=== PATIENT | female | born 1985 | race American Indian/Alaskan Native ===

== ENCOUNTER 2020-01-02 07:54 | Emergency (ER) | payer OTHER ==
[2020-01-02] MEDS ORDERED: ACETAMINOPHEN 500 MG TAB PO ONE (08:23)
[2020-01-02] MEDS ORDERED: SODIUM CHLORIDE 0.9% 1000 ML 1,000 ML IV ONE (08:23)
[2020-01-02 08:28] LABS: Bacteria,Urine 3+ /HPF (Negative); Bilirubin,Urine NEG (Negative); Blood,Urine MOD (Negative); Color,Urine Yellow (Yellow); Mucus,Urine FEW /HPF
[2020-01-02 08:29] LABS: WBC,Urine > 182.0 /HPF (0.0-6.0)
--- NOTE | 2020-01-02 09:03 | Emergency Department Report ---
ED Female HPI - General Chief complaint: Urogenital-Female Stated complaint: NIGHT SWEATS/KRISHNA WHEN PEE Time Seen by Provider: 01/02/20 08:20 Source: patient Mode of arrival: Ambulatory Limitations: No Limitations - History of Present Illness Initial comments: 34-year-old -[place] female presents to the emergency room complaining of burning with urination and sweats. Patient states this been going on for a few days. Patient denies any fever admits to chills sweats no nausea no vomiting. Last menstrual period was 12/12/2019 and has her tubes tied. Complaint: dysuria Onset/Timin -: days(s) Consistency: intermittent Worsens with: urination Are you Now?: No Last Menstrual Period: 12/12/19 (Tubal ligation) EDC: 09/17/20 Associated Symptoms: fever/chills (Chills no fever), dysuria, other (Diapho resis) - Related Data Previous Rx's Medication Instructions Recorded Last Taken Type Ibuprofen [Motrin 600 MG tab] 600 mg PO Q8H PRN #30 tablet 03/22/19 Unknown Rx Nitrofurantoin [place]/M-Cryst 100 mg PO Q12HR 10 Days #20 capsule 01/02/20 Unknown Rx [Macrobid CAP] Phenazopyridine [Pyridium] 100 mg PO TID #6 tab 01/02/20 Unknown Rx Allergies Allergy/AdvReac Type Severity Reaction Status Date / Time No Known Allergies Allergy Unverified 03/22/19 05:52 ED Review of Systems ROS: Stated complaint: NIGHT SWEATS/KRISHNA WHEN PEE Other details as noted in HPI Comment: All other systems reviewed and negative ED Past Medical Hx - Past Medical History Additional medical history: Herniated back pain - Surgical History Hx Cholecystectomy: Yes Additional Surgical History: C-sections X 3, Tubal Ligation - Social History Smoking Status: Current Every Day Smoker Substance Use Type: None - Medications Home Medications: Home Medications Medication Instructions Recorded Confirmed Last Taken Type Ibuprofen [Motrin 600 MG tab] 600 mg PO Q8H PRN #30 tablet 03/22/19 Unknown Rx Nitrofurantoin [place]/M-Cryst 100 mg PO Q12HR 10 Days #20 capsule 01/02/20 Unknown Rx [Macrobid CAP] Phenazopyridine [Pyridium] 100 mg PO TID #6 tab 01/02/20 Unknown Rx ED Physical Exam - General Limitations: No Limitations General appearance: alert, in no apparent distress, obese, other (Pale diaphoretic) - Head Head exam: Present: atraumatic, normocephalic - Eye Eye exam: Present: normal appearance - ENT ENT exam: Present: mucous membranes moist - Respiratory Respiratory exam: Present: normal lung sounds bilaterally. Absent: respiratory distress - Cardiovascular Cardiovascular Exam: Present: regular rate, normal rhythm. Absent: systolic murmur, diastolic murmur, rubs, gallop - GI/Abdominal GI/Abdominal exam: Present: soft, normal bowel sounds. Absent: distended, tenderness - Extremities Exam Extremities exam: Present: full ROM. Absent: pedal edema - Back Exam Back exam: Present: normal inspection, full ROM. Absent: tenderness - Neurological Exam Neurological exam: Present: alert, oriented X3, normal gait - Psychiatric Psychiatric exam: Present: normal affect, normal mood - Skin Skin exam: Present: warm, dry, intact, normal color. Absent: rash ED Course Vital Signs 01/02/20 01/02/20 01/02/20 08:06 08:35 08:56 Temperature 97.8 F Pulse Rate 109 H Respiratory 18 18 18 Rate Blood Pressure 150/103 [Right] O2 Sat by Pulse 98 99 Oximetry ED Medical Decision Making - Lab Data Result diagrams: 01/02/20 08:26 01/02/20 08:26 Laboratory Tests 01/02/20 01/02/20 01/02/20 08:11 08:26 08:26 WBC 8.9 RBC 4.75 Hgb 12.9 Hct 39.2 MCV 83 MCH 27 L MCHC 33 RDW 16.0 H Plt Count 399 [place] % (Auto) [employer] Sodium Potassium Chloride Carbon Dioxide Anion Gap BUN Creatinine Estimated GFR BUN/Creatinine Ratio Glucose Calcium Total Bilirubin AST ALT Alkaline Phosphatase Total Protein Albumin Albumin/Globulin Ratio HCG, Quant < 2 Urine Color Yellow Urine Turbidity Turbid Urine pH 6.0 Ur Specific [place] 1.013 Urine Protein 30 mg/dl Urine Glucose (UA) Neg Urine Ketones Tr Urine Blood Mod Urine Nitrite Neg Urine Bilirubin Neg Urine Urobilinogen 4.0 Ur Leukocyte Esterase Mod Urine WBC (Auto) > 182.0 H Urine RBC (Auto) 56.0 Urine Bacteria (Auto) 3+ Urine WBC Clumps 3+ Ur Transition Epith Cell 5 Urine Mucus Few 01/02/20 08:26 WBC RBC Hgb Hct MCV MCH MCHC RDW Plt Count [place] % (Auto) Sodium 140 Potassium 3.6 Chloride 100.0 Carbon Dioxide 26 Anion Gap 18 BUN 11 Creatinine 0.9 Estimated GFR > 60 BUN/Creatinine Ratio 12 Glucose 108 H Calcium 9.4 Total Bilirubin 0.70 AST 24 ALT 30 Alkaline Phosphatase 107 Total Protein 8.7 H Albumin 4.1 Albumin/Globulin Ratio 0.9 HCG, Quant Urine Color Urine Turbidity Urine pH Ur Specific [place] Urine Protein Urine Glucose (UA) Urine Ketones Urine Blood Urine Nitrite Urine Bilirubin Urine Urobilinogen Ur Leukocyte Esterase Urine WBC (Auto) Urine RBC (Auto) Urine Bacteria (Auto) Urine WBC Clumps Ur Transition Epith Cell Urine Mucus - Medical Decision Making 34-year-old -[place] female presents to the emergency room complaining of burning with urination and sweats. Patient states this been going on for a few days. Patient denies any fever admits to chills sweats no nausea no vomiting. Last menstrual period was 12/12/2019 and has her tubes tied. Patient will be treated for urinary tract infection. Patient was given IV fluids which she reports she has felt much better. Labs are ordered. Urinalysis shows she has a urinary tract infection will place her on Macrobid and to follow-up with her primary care provider. Critical care attestation.: If time is entered above; I have spent that time in minutes in the direct care of this critically ill patient, excluding procedure time. ED Disposition Clinical Impression: UTI (urinary tract infection) Disposition: DC-01 TO HOME OR SELFCARE Is pt being admited?: No Does the pt Need Aspirin: No Condition: Stable Instructions: Urinary Tract Infection in Women (ED) Additional Instructions: Complete your antibiotics as prescribed. Please increase your fluid intake by 2 L a day. Follow-up with your primary care provider for reevaluation in 5 to 7 days. Prescriptions: Nitrofurantoin [place]/M-Cryst [Macrobid CAP] 100 mg PO Q12HR 10 Days #20 capsule Phenazopyridine [Pyridium] 100 mg PO TID #6 tab Referrals: DEVONTE ANDRE MD [Primary Care Provider] - 3-5 Days Forms: Work/School Release Form(ED)
[2020-01-02 09:21] LABS: Hematocrit 39.2 % (30.3-42.9); Hemoglobin 12.9 gm/dl (10.1-14.3); Mean Corpuscular HGB Conc 33 % (30-34); Mean Corpuscular Volume 83 fl (79-97); Platelet Count 399 K/mm3 (140-440); Red Blood Count 4.75 M/mm3 (3.65-5.03)
[2020-01-02 09:38] LABS: Alanine Aminotransferase 30 units/L (7-56); Albumin 4.1 g/dL (3.9-5); BUN/Creatinine Ratio 12; Blood Urea Nitrogen 11 mg/dL (7-17); Calcium 9.4 mg/dL (8.4-10.2); Hemolysis Index 0
[2020-01-02 13:33] LABS: Basophils % (Manual) 0 % (0.0-1.8); Total Cells Counted 100
[2020-01-02 13:34] LABS: Platelet Estimate Consistent w Auto
[2020-01-02 13:53] VITALS: BP 123/80
== END 2020-01-02 10:33 | disposition home or self-care (01) ==
LOC: ED 07:54
DX: N39.0 Urinary tract infection, site not specified (principal); F17.200 Nicotine dependence, unspecified, uncomplicated; Z98.51 Tubal ligation status; Z98.890 Other specified postprocedural states; Z90.49 Acquired absence of other specified parts of digestive tract; Z79.899 Other long term (current) drug therapy
CPT/HCPCS: 36415; 80053; 81001; 84702; 85007; 85025; 87076; 87086; 87186; 99283; J7030